=== PATIENT | female | born 1955 | race Caucasian/White ===

== ENCOUNTER 2022-06-09 13:15 | Inpatient (IN) | payer BC ==
[~2022-06-09 13:15] MED LIST: Iopamidol 300 61% 100 ML VIAL FS ONE
[2022-06-09 14:00] LABS: #Monocytes 0.5 10x3/uL (0.0-1.1); %Basophils 0.1 % (0.0-2.0); %Lymphocytes 22.1 % (18.0-47.0); %Monocytes 6.9 % (0.0-10.0); %Neutrophils 70.5 % (40.0-75.0); Hemoglobin 3.8 g/dL (12.0-15.5); Mean Corpuscular HGB CONC 28.6 g/dL (32.0-36.0); Mean Corpuscular Hemoglobin 24.5 pg (27.0-33.0); Mean Corpuscular Volume 85.8 fl (81.6-98.3); Mean Platelet Volume 10.1 fl (7.4-10.4); Platelet Count 421 10x3/uL (150-450); RBC Distribution Width 15.8 % (11.5-14.5); Red Blood Cell (RBC) Count 1.55 10x6/uL (3.90-5.03); White Blood Cell (WBC) Count 7.1 10x3/uL (3.5-10.5)
[2022-06-09 14:05] LABS: ALT (SGPT) 26 U/L (8-55); AST (SGOT) 29 U/L (5-34); Albumin 3.9 g/dL (3.4-4.8); Alkaline Phosphatase 67 U/L (40-110); Anion Gap 16 mmol/L (10-20); BUN (Urea Nitrogen) 32 mg/dL (9.8-20.1); Bilirubin, Total 0.4 mg/dL (0.2-1.2); Calc. Creatinine Clearance 0 mL/min (70-130); Calcium 8.7 mg/dL (7.8-10.44); Carbon Dioxide 23 mmol/L (23-31); Chloride 106 mmol/L (98-107); Estimated GFR 95; Globulin 2.2 g/dL (2.4-3.5); Glucose 94 mg/dL (80-115); Potassium 3.9 mmol/L (3.5-5.1); Protein, Total 6.1 g/dL (5.8-8.1); Sodium 141 mmol/L (136-145)
[2022-06-09] MEDS ORDERED: Ondansetron ODT 4 MG TAB PO PRN (15:07)
[2022-06-09] MEDS ORDERED: Acetaminophen 325 MG TAB PO PRN (15:07)
[2022-06-09] MEDS ORDERED: Ondansetron PF 4 MG/2 ML Vial IVP PRN (15:07)
[2022-06-09] MEDS ORDERED: Sodium Chloride 0.9% 1,000 ML IV SCH (15:15)
[2022-06-09 17:08] LABS: Anisocytosis SLIGHT = 6-15 cells (100X) (0-5/hpf); Polychromasia SLIGHT = 2-3 cells (100X) (0-2/hpf)
[2022-06-09 17:09] LABS: Hypochromia MODERATE=16-30 cells (100X) (0-5/hpf); Platelet Morphology Comment Appears Adequate
[2022-06-09 18:38] LABS: Ferritin 5.13 ng/mL (10-291)
[2022-06-09 19:04] LABS: ALT (SGPT) 25 U/L (8-55); AST (SGOT) 27 U/L (5-34); Albumin 3.7 g/dL (3.4-4.8); Alkaline Phosphatase 66 U/L (40-110); Bilirubin, Direct 0.4 mg/dL (0.1-0.3); Bilirubin, Total 1.1 mg/dL (0.2-1.2); Protein, Total 5.9 g/dL (5.8-8.1)
[2022-06-09 23:02] VITALS: BMI 17.3
[2022-06-09 23:10] LABS: Vitamin B12 Greater than 2000 pg/mL (211-911)
[2022-06-09 23:23] LABS: Hemoglobin 8.6 g/dL (12.0-15.5)
[2022-06-09] MEDS: Polyethylene Glycol 3350 17 GM Packet PO SCH (23:35)
[2022-06-10] MEDS ORDERED: Artificial Tear Sol 15 ML BOT EA EYE SCH (00:15)
[2022-06-10] MEDS ORDERED: Baclofen 10 MG TAB PO SCH (00:15)
[2022-06-10] MEDS ORDERED: NALTREXONE 4 MG PO SCH (00:15)
[2022-06-10] MEDS ORDERED: Trospium 20 MG TAB PO SCH (00:15)
[2022-06-10] MEDS: Polyethylene Glycol 3350 17 GM Packet PO SCH ×3 (00:22→02:22)
[2022-06-10 04:40] LABS: #Basophils 0.1 10x3/uL (0.0-0.2); #Eosinphils 0.1 10x3/uL (0.0-0.5); #Monocytes 0.8 10x3/uL (0.0-1.1); #Neutrophils 6.5 10x3/uL (1.5-8.4); %Basophils 0.8 % (0.0-2.0); %Eosinophils 0.6 % (0.0-6.0); %Lymphocytes 18.5 % (18.0-47.0); %Monocytes 8.9 % (0.0-10.0); %Neutrophils 70.7 % (40.0-75.0); Hemoglobin 8.6 g/dL (12.0-15.5); Mean Corpuscular HGB CONC 33.6 g/dL (32.0-36.0); Mean Corpuscular Volume 83.4 fl (81.6-98.3); Mean Platelet Volume 9.6 fl (7.4-10.4); Platelet Count 356 10x3/uL (150-450); RBC Distribution Width 15.5 % (11.5-14.5); Red Blood Cell (RBC) Count 3.07 10x6/uL (3.90-5.03); White Blood Cell (WBC) Count 9.3 10x3/uL (3.5-10.5)
[2022-06-10 04:47] LABS: Anion Gap 15 mmol/L (10-20); BUN (Urea Nitrogen) 15 mg/dL (9.8-20.1); Calc. Creatinine Clearance 63 mL/min (70-130); Calcium 8.7 mg/dL (7.8-10.44); Carbon Dioxide 22 mmol/L (23-31); Chloride 109 mmol/L (98-107); Estimated GFR 98; Glucose 82 mg/dL (80-115); Potassium 3.8 mmol/L (3.5-5.1); Sodium 142 mmol/L (136-145)
[2022-06-10 06:59] LABS: SARS-CoV-2 NAA Rapid Test Not Detected (NotDetected)
[2022-06-10 11:13] LABS: Bilirubin Neg (Negative); Blood, Urine 150 (Negative); Clarity Slightly Cloudy (Clear); Glucose, Urine (Dipstick) Normal (Negative); Ketone, Urine Negative (Negative); Leukocyte Negative (Negative); Nitrite Negative (Negative); Protein, Urine (Dipstick) Negative (Neg-Trace); Urobilinogen Normal mg/dL (Less than 2)
[2022-06-10 11:40] LABS: RBC/HPF 0-3 HPF (0-3); Squamous Epithelial 0-3 HPF (0-3); WBC/HPF 0-3 HPF (0-3)
[2022-06-10 11:41] LABS: Bacteria/HPF 3+ HPF (None Seen)
[2022-06-10] MEDS ORDERED: GoLYTELY 4,000 ml Bottle PO SCH (13:00)
[2022-06-10] MEDS: Baclofen 10 MG TAB PO SCH ×2 (16:22→21:31)
[2022-06-10] MEDS: Artificial Tear Sol 15 ML BOT EA EYE SCH (21:30)
[2022-06-10] MEDS: Trospium 20 MG TAB PO SCH (21:31)
[2022-06-10] MEDS: NALTREXONE 4 MG PO SCH (21:32)
[2022-06-11 06:28] LABS: #Basophils 0.1 10x3/uL (0.0-0.2); #Monocytes 0.9 10x3/uL (0.0-1.1); #Neutrophils 10.1 10x3/uL (1.5-8.4); %Basophils 0.5 % (0.0-2.0); %Eosinophils 0.2 % (0.0-6.0); %Lymphocytes 9.2 % (18.0-47.0); %Monocytes 7.1 % (0.0-10.0); %Neutrophils 82.6 % (40.0-75.0); Hemoglobin 9.1 g/dL (12.0-15.5); Mean Corpuscular Volume 84.9 fl (81.6-98.3); Mean Platelet Volume 9.4 fl (7.4-10.4); Platelet Count 369 10x3/uL (150-450); RBC Distribution Width 16.3 % (11.5-14.5); Red Blood Cell (RBC) Count 3.25 10x6/uL (3.90-5.03); White Blood Cell (WBC) Count 12.2 10x3/uL (3.5-10.5)
[2022-06-11 06:44] LABS: Anion Gap 14 mmol/L (10-20); BUN (Urea Nitrogen) 14 mg/dL (9.8-20.1); Calc. Creatinine Clearance 58 mL/min (70-130); Calcium 8.6 mg/dL (7.8-10.44); Carbon Dioxide 26 mmol/L (23-31); Chloride 107 mmol/L (98-107); Estimated GFR 96; Glucose 100 mg/dL (80-115); Potassium 3.5 mmol/L (3.5-5.1); Sodium 143 mmol/L (136-145)
[2022-06-11] MEDS: Baclofen 10 MG TAB PO SCH ×3 (08:56→20:50)
[2022-06-11] MEDS: Artificial Tear Sol 15 ML BOT EA EYE SCH ×2 (08:57→20:53)
[2022-06-11] MEDS: Trospium 20 MG TAB PO SCH ×2 (08:57→20:51)
[2022-06-11] MEDS ORDERED: Fleet Saline Enema 133 ML BOT PR SCH (11:45)
[2022-06-11] MEDS ORDERED: Mineral Oil ENEMA PR SCH (14:00)
[2022-06-11] MEDS ORDERED: GoLYTELY 4,000 ml Bottle PO SCH ×2 (18:30→20:00)
[2022-06-11] MEDS: NALTREXONE 4 MG PO SCH (20:51)
[2022-06-12 06:05] LABS: #Basophils 0.1 10x3/uL (0.0-0.2); #Eosinphils 0.2 10x3/uL (0.0-0.5); #Monocytes 0.6 10x3/uL (0.0-1.1); %Basophils 0.7 % (0.0-2.0); %Eosinophils 2.2 % (0.0-6.0); %Lymphocytes 20.2 % (18.0-47.0); %Monocytes 8.2 % (0.0-10.0); %Neutrophils 68.3 % (40.0-75.0); Hemoglobin 8.7 g/dL (12.0-15.5); Mean Corpuscular HGB CONC 32.3 g/dL (32.0-36.0); Mean Corpuscular Hemoglobin 28.1 pg (27.0-33.0); Mean Corpuscular Volume 86.8 fl (81.6-98.3); Mean Platelet Volume 9.6 fl (7.4-10.4); Platelet Count 333 10x3/uL (150-450); RBC Distribution Width 16.7 % (11.5-14.5); White Blood Cell (WBC) Count 7.3 10x3/uL (3.5-10.5)
[2022-06-12 06:26] LABS: Anion Gap 13 mmol/L (10-20); BUN (Urea Nitrogen) 9 mg/dL (9.8-20.1); Calc. Creatinine Clearance 66 mL/min (70-130); Calcium 8.4 mg/dL (7.8-10.44); Carbon Dioxide 26 mmol/L (23-31); Chloride 107 mmol/L (98-107); Estimated GFR 99; Glucose 89 mg/dL (80-115); Potassium 3.1 mmol/L (3.5-5.1); Sodium 143 mmol/L (136-145)
[2022-06-12] MEDS: Trospium 20 MG TAB PO SCH ×2 (08:33→21:21)
[2022-06-12] MEDS: Artificial Tear Sol 15 ML BOT EA EYE SCH ×2 (08:33→21:21)
[2022-06-12] MEDS: Baclofen 10 MG TAB PO SCH ×3 (08:33→21:21)
[2022-06-12] MEDS: Potassium Chloride 20 MEQ in Premix Bag 1 BAG IVPB SCH ×2 (08:33→10:58)
[2022-06-12] MEDS ORDERED: Acetaminophen 500 MG TAB PO SCH (09:00)
[2022-06-12] MEDS ORDERED: Promethazine HCl 25 MG/ML VIAL ONE (14:13)
[2022-06-12] MEDS ORDERED: Dexmedetomidine 200 MCG/2 ML VIAL ONE (14:13)
[2022-06-12] MEDS ORDERED: Ketamine 50 MG/ML (10ML VIAL) ONE (14:13)
[2022-06-12] MEDS: NALTREXONE 4 MG PO SCH (21:20)
[2022-06-13 05:03] LABS: #Eosinphils 0.2 10x3/uL (0.0-0.5); #Monocytes 0.4 10x3/uL (0.0-1.1); #Neutrophils 4.2 10x3/uL (1.5-8.4); %Basophils 0.6 % (0.0-2.0); %Eosinophils 2.6 % (0.0-6.0); %Lymphocytes 21.6 % (18.0-47.0); %Neutrophils 67.9 % (40.0-75.0); Hemoglobin 8.7 g/dL (12.0-15.5); Mean Corpuscular HGB CONC 31.5 g/dL (32.0-36.0); Mean Corpuscular Hemoglobin 27.4 pg (27.0-33.0); Mean Corpuscular Volume 87.1 fl (81.6-98.3); Mean Platelet Volume 9.6 fl (7.4-10.4); Platelet Count 350 10x3/uL (150-450); RBC Distribution Width 16.5 % (11.5-14.5); Red Blood Cell (RBC) Count 3.17 10x6/uL (3.90-5.03); White Blood Cell (WBC) Count 6.2 10x3/uL (3.5-10.5)
[2022-06-13 05:13] LABS: Anion Gap 13 mmol/L (10-20); BUN (Urea Nitrogen) 11 mg/dL (9.8-20.1); Calc. Creatinine Clearance 67 mL/min (70-130); Calcium 8.3 mg/dL (7.8-10.44); Carbon Dioxide 26 mmol/L (23-31); Chloride 106 mmol/L (98-107); Estimated GFR 100; Glucose 80 mg/dL (80-115); Potassium 3.1 mmol/L (3.5-5.1); Sodium 142 mmol/L (136-145)
[2022-06-13 05:15] LABS: PTT 25.6 sec (22.0-33.0); Prothrombin Time 10.3 sec (9.5-12.1)
[2022-06-13] MEDS ORDERED: Potassium Chloride 20 MEQ TAB PO SCH ×2 (09:00→16:00)
[2022-06-13] MEDS ORDERED: Polyethylene Glycol 3350 17 GM Packet PO SCH (09:00)
[2022-06-13] MEDS: Baclofen 10 MG TAB PO SCH ×2 (10:18→15:36)
[2022-06-13] MEDS: Artificial Tear Sol 15 ML BOT EA EYE SCH (10:27)
[2022-06-13] MEDS: Trospium 20 MG TAB PO SCH (10:27)
[2022-06-13] MEDS: Potassium Chloride 20 MEQ in Premix Bag 1 BAG IVPB SCH ×2 (11:07→12:14)
[2022-06-13 13:56] VITALS: TEMP 98.9
[2022-06-13 15:54] VITALS: BP 127/68
== END 2022-06-13 15:47 | disposition home or self-care (01) | DRG 812 ==
LOC: CSHERS 13:15 → CSHTELE 14:59 → OBSVTOIN 06-11 11:39
PROVIDERS: ADMIT Family Medicine; ATTEND Internal Medicine
PROC: 30233N1 Transfusion of Nonautologous Red Blood Cells into Peripheral Vein, Percutaneous Approach (ICD-10-PCS; 2022-06-09)
PROC: 0DB98ZX Excision of Duodenum, Via Natural or Artificial Opening Endoscopic, Diagnostic (ICD-10-PCS; principal; 2022-06-12)
PROC: 0DJD8ZZ Inspection of Lower Intestinal Tract, Via Natural or Artificial Opening Endoscopic (ICD-10-PCS; 2022-06-12)
DX: D50.9 Iron deficiency anemia, unspecified (principal); K22.10 Ulcer of esophagus without bleeding; E44.0 Moderate protein-calorie malnutrition; I85.00 Esophageal varices without bleeding; Z68.1 Body mass index [BMI] 19.9 or less, adult; D18.03 Hemangioma of intra-abdominal structures; R19.00 Intra-abdominal and pelvic swelling, mass and lump, unspecified site; G35 Multiple sclerosis; G25.0 Essential tremor; K44.9 Diaphragmatic hernia without obstruction or gangrene; K59.00 Constipation, unspecified; K76.89 Other specified diseases of liver; R31.29 Other microscopic hematuria; Z98.890 Other specified postprocedural states; Z80.0 Family history of malignant neoplasm of digestive organs; Z88.8 Allergy status to other drugs, medicaments and biological substances; Z79.899 Other long term (current) drug therapy; Z20.822 Contact with and (suspected) exposure to COVID-19
CPT/HCPCS: 36415; 36430; 74018; 74177; 80048; 80053; 81001; 82607; 82728; 83010; 83540; 83550; 84484; 85025; 85046; 85610; 85730; 86850; 86900; 86901; 88305; 93005; 94760; J2550; J3480; J7050; P9016; Q9967; U0002